=== PATIENT | female | born 1985 | race Caucasian/White ===

== ENCOUNTER → 2017-04-03 | Outpatient (CLI) | payer OTHER ==
--- NOTE | 2017-04-03 09:34 | MM ---
Reason for exam: clinical finding. History: Family history of breast cancer in maternal grandmother at age 30. Took hormonal contraceptives for 2 years beginning at age 23. Physical Findings: Nurse did not find any significant physical abnormalities on exam. MG Diagnostic Mammo w CAD YAMEL Bilateral CC and MLO view(s) were taken. The breast tissue is heterogeneously dense. This may lower the sensitivity of mammography. No suspicious abnormality. These results were verbally communicated with the patient and result sheet given to the patient on 04/03/17. ASSESSMENT: Negative, BI-RAD 1 RECOMMENDATION: Routine screening mammogram of both breasts at age 41. (or sooner if clinically indicated)
--- NOTE | 2017-04-03 09:35 | USB ---
Reason for exam: clinical finding. History: Family history of breast cancer in maternal grandmother at age 30. Took hormonal contraceptives for 2 years beginning at age 23. US Breast LT Left breast ultrasound includes all four quadrants, the retroareolar region and axilla. Finding demonstrates no cystic or solid lesion seen. Area of concern negative. No suspicious sonographic finding. These results were verbally communicated with the patient and result sheet given to the patient on 04/03/17. ASSESSMENT: Negative, BI-RAD 1 RECOMMENDATION: Routine screening mammogram of both breasts at age 41. (or sooner if clinically indicated)
== END | disposition home or self-care (01) ==
LOC: RADMAMWWP 08:12
PROVIDERS: ATTEND Family Medicine
DX: N63.20 Unspecified lump in the left breast, unspecified quadrant (principal)
CPT/HCPCS: 77066

== ENCOUNTER → 2017-06-04 | Outpatient (CLI) | payer OTHER ==
--- NOTE | 2017-06-06 17:12 | BMR ---
EXAMINATION TYPE: MR breast BILAT wo/w con DATE OF EXAM: 06/04/2017 COMPARISON: Diagnostic mammogram and left breast ultrasound dated 04/03/2017. HISTORY: High risk screening. patient states left breast, near breast bone on approximately 7-9 o'vahe ck, lump TECHNIQUE: A series of fat and water weighted images in the long and short axis views of both breasts are obtained in conjunction with dynamic contrast MRI with subtraction technique. The patient was i njected with 7 mL intravenous Gadavist gadolinium contrast. Three-dimensional and additional postpr ocessing imaging is created on independent workstation and reviewed during official interpretation of this study. FINDINGS: There is mild symmetric background parenchymal enhancement in breasts that are composed of heterogeno us fibroglandular tissue. No measurable cysts are seen. No chest wall irregularity. No focal skin thickening. There is no suspicious mass or nonmass enhancement within either breast. No suspicious axillary, inte rnal mammary or intramammary lymph nodes are seen. IMPRESSION: BI-RADS 1-No MRI evidence of malignancy. Clinical management is recommended in the patient's palpable abnormality. Consideration for annual high-risk screening MR could be performed in this patient with family history of breast cancer.
== END | disposition home or self-care (01) ==
LOC: RADMRIMAIN 18:25
PROVIDERS: ATTEND Physician Assistant
DX: N63.20 Unspecified lump in the left breast, unspecified quadrant (principal)
CPT/HCPCS: 0159T; C8908; A9581; 77059

== ENCOUNTER → 2018-12-30 | Outpatient (CLI) | payer OTHER ==
--- NOTE | 2018-12-30 22:38 | MR ---
EXAMINATION TYPE: MR brain wo/w con DATE OF EXAM: 12/30/2018 COMPARISON: NONE HISTORY: Dizziness, Headaches x 3 months, memory loss TECHNIQUE: Multiplanar, multisequence images of the brain and brainstem is performed without and with IV contras t, utilizing 6 mL intravenous Gadavist . FINDINGS: Diffusion weighted images demonstrate no evidence of a recent infarct or other diffusion ab normality. There is no extra-axial fluid collection or significant white matter signal abnormality. The ventricular system and cisternal spaces are normal in size and appearance. The brain volume is age appropriate. Midline structures demonstrate normal morphology. The craniocervical junction appears within normal limits. Post contrast images demonstrate no abnormal enhancement. The dural venous sinuses appear pa tent. Ehbr-[id number] mucosal thickening involving ethmoid sinuses and inferior maxillary sinuses bi laterally. Nasal septum slightly deviated to left of midline. Visualized globes are grossly intact. N o suspicious fluid signal bilateral mastoid air cells. IMPRESSION: Chronic paranasal sinus disease otherwise unremarkable study.
== END | disposition home or self-care (01) ==
LOC: RADMRIMAIN 18:21
PROVIDERS: ATTEND Physician Assistant
DX: R51 Headache (principal)
CPT/HCPCS: 70553; A9585

== ENCOUNTER → 2022-01-23 | Outpatient (CLI) | payer OTHER ==
--- NOTE | 2022-01-23 10:08 | CA ---
Exercise Stress Test Report Name: Luis Alberto Youssef Exam Date: 01/23/2022 09:22 Exam Location: [place] Stress Ht (in): 63 Wt (lb): 142 BSA: 1.67 Ordering Phys: Katia Jara DO Referring Phys: Svetlana Jay [facility] Technologist: Shyam Hall Age: 36 Gender: F : 1985 Procedure CPT: Indications: R07.9 CHEST PAIN R94.31 ABNORMAL EKG R00.1 ICD-10 Codes: Patient History: Medications: Meds past 24 hrs: Pretest Chest Pain: STRESS TEST Thor Protocol Exercise Duration (min:sec): 07:[address] Depressions (mm): Angina Score: Martin Score: Resting HR (bpm): 72 Peak HR (bpm): 175 Resting BP (mmHg): 123 / 78 Peak BP (mmHg): 166 / 71 MPHR: 185 Target HR: 157 % MPHR: 95 METS: 8.9 Total Dose: Peak Dose: Atropine: Double Product: 52364 BP Response: Stress Termination: Reached target heart rate Stress Symptoms: CHEST PAIN, SHORT OF BREATH, VERTIGO Stress Summary: ECG ANALYSIS Resting ECG: Stress ECG: CONCLUSIONS Patient underwent exercise stress EKG with a Thor protocol treadmill stress test. Patient exercised into Stage 2 for a total of 7 minutes and 2 seconds reaching a total of 8.9 METS. Patient's maximum heart rate was 175 which represented 94 % age- predicted maximum heart rate. Stress EKG findings: At baseline patient's EKG showed normal sinus rhythm, normal axis, no significant ST or T wave abnormalities. At peak exercise, EKG showed no significant change from baseline. Conclusions: 1. Normal EKG response to exercise without evidence of inducible ischemia. 2. Fair exercise capacity. Dr. Jose Alfredo Lucas DO (Electronically Signed) Final Date: 23 January 2022 10:08
== END | disposition home or self-care (01) ==
LOC: RADNMMAIN 08:56
PROVIDERS: ATTEND Family Medicine
DX: R07.9 Chest pain, unspecified (principal); R94.31 Abnormal electrocardiogram [ECG] [EKG]
CPT/HCPCS: 93017